=== PATIENT | male | born 1990 | race Caucasian/White ===

== ENCOUNTER 2020-01-11 19:49 | Emergency (ER) | payer MEDICAID ==
[~2020-01-11] VITALS: Ht 175.3 cm; Wt 70.0 kg
[2020-01-11] MEDS ORDERED: IBUPROFEN 600MG TABLET PO STA (21:12)
[2020-01-11 21:39] VITALS: BP 125/73
== END 2020-01-11 21:41 | disposition home or self-care (01) ==
LOC: ER 19:49
DX: M54.5 Low back pain (principal)
CPT/HCPCS: 99283